=== PATIENT | female | born 1960 | race Hispanic/Latino ===

== ENCOUNTER 2020-06-29 13:30 | Outpatient (CLI) | payer OTHER | END 2020-06-29 13:31 | disposition home or self-care (01) | LOC: BICMAMMO 13:30 | PROVIDERS: ATTEND Family Medicine | DX: Z12.31 Encounter for screening mammogram for malignant neoplasm of breast (principal) | CPT/HCPCS: 77063; 77067 ==

== ENCOUNTER 2020-09-03 15:17 | Emergency (ER) | payer OTHER ==
[2020-09-03] MEDS ORDERED: Acetaminophen 325 MG TAB ONE (16:08)
== END 2020-09-03 18:33 | disposition home or self-care (01) ==
LOC: ERS 15:17
DX: S42.144A Nondisplaced fracture of glenoid cavity of scapula, right shoulder, initial encounter for closed fracture (principal); I10 Essential (primary) hypertension; M19.90 Unspecified osteoarthritis, unspecified site; Z79.899 Other long term (current) drug therapy; W01.0XXA Fall on same level from slipping, tripping and stumbling without subsequent striking against object, initial encounter
CPT/HCPCS: 71045; 72170

== ENCOUNTER 2020-09-19 07:50 | Outpatient (CLI) | payer OTHER | END 2020-09-19 07:51 | disposition home or self-care (01) | LOC: BICULT 07:50 | PROVIDERS: ATTEND Internal Medicine Gastroenterology | DX: R94.5 Abnormal results of liver function studies (principal); K76.0 Fatty (change of) liver, not elsewhere classified | CPT/HCPCS: 93975 ==

== ENCOUNTER 2020-09-19 07:52 | Outpatient (CLI) | payer OTHER | END 2020-09-19 07:53 | disposition home or self-care (01) | LOC: BICCT 07:52 | PROVIDERS: ATTEND Orthopaedic Surgery | DX: S42.141A Displaced fracture of glenoid cavity of scapula, right shoulder, initial encounter for closed fracture (principal) ==

== ENCOUNTER 2021-07-06 11:12 | Outpatient (CLI) | payer OTHER | END 2021-07-06 11:13 | disposition home or self-care (01) | LOC: BICMAMMO 11:12 | PROVIDERS: ATTEND Family Medicine | DX: Z12.31 Encounter for screening mammogram for malignant neoplasm of breast (principal) | CPT/HCPCS: 77063; 77067 ==

== ENCOUNTER 2022-10-08 09:28 | Outpatient (CLI) | payer BC | END 2022-10-08 09:29 | disposition home or self-care (01) | LOC: BICMAMMO 09:28 | PROVIDERS: ATTEND Family Medicine | DX: Z12.31 Encounter for screening mammogram for malignant neoplasm of breast (principal) | CPT/HCPCS: 77063; 77067 ==

== ENCOUNTER 2023-08-06 09:43 | Outpatient (CLI) | payer BC | END 2023-08-06 09:44 | disposition home or self-care (01) | LOC: BICRAD 09:43 | PROVIDERS: ATTEND Family Medicine | DX: M25.512 Pain in left shoulder (principal); S92.415D Nondisplaced fracture of proximal phalanx of left great toe, subsequent encounter for fracture with routine healing; Z91.81 History of falling ==

== ENCOUNTER 2023-09-10 07:57 | Outpatient (CLI) | payer BC | END 2023-09-10 07:58 | disposition home or self-care (01) | LOC: BICMAMMO 07:57 | PROVIDERS: ATTEND Family Medicine | DX: Z13.820 Encounter for screening for osteoporosis (principal); M85.89 Other specified disorders of bone density and structure, multiple sites; Z78.0 Asymptomatic menopausal state | CPT/HCPCS: 77080 ==